=== PATIENT | male | born 1990 | race Caucasian/White ===

== ENCOUNTER 2016-09-05 13:31 | Emergency (ER) | payer BC ==
[2016-09-05 14:13] VITALS: BP 123/59
[2016-09-05] MEDS ORDERED: KETOROLAC TROMETHAMINE 60 MG/2 ML VIAL IM ONE ×2 (16:31→16:34)
--- NOTE | 2016-09-05 17:04 | ERNOTE ---
Back Pain ER HPI Date of Service: 09/05/16 Presenting Symptoms: injury/pain to back Time Seen by Provider: 09/05/16 16:16 Source: patient, RN notes reviewed Exam Limitations: no limitations Immunizations: IMMUNIZATION HX Immunizations Up to Date Yes History of Influenza Vaccine No Hx Pneumococcal Vaccination No Allergies/Adverse Reactions: Allergies No Known Allergies Allergy (Verified 07/08/16 14:11) Home Medications: HOME MEDICATIONS Geodon 80 mg PO DAILY 05/13/16 [Last Taken Unknown] Sertraline HCl [Zoloft] 100 mg PO DAILY 05/13/16 [Last Taken Unknown] Cyclobenzaprine HCl [Flexeril] 20 mg PO HS 09/05/16 [Last Taken Unknown] Cyclobenzaprine HCl [Flexeril] 25 mg PO TID PRN #30 tablet 09/05/16 [Last Taken Unknown] Ibuprofen [Motrin] 600 mg PO Q6H PRN #40 tab 09/05/16 [Last Taken Unknown] Narrative: Reinaldo is a 25 year old male who presents to the ER for left lower back pain that began approximately 2 weeks ago. He denies any injury or prior back problems, but reports having problems with his left hip in the past. He has not been taking anything for pain because he is under the impression that he cannot take Tylenol or ibuprofen with his Xanax and Geodon. His pain radiates down his left leg. Timing: Reports: constant Location of pain: Reports: lower back, radiating to lf thigh/leg Activities at Onset: Reports: none Recent Injury?: Reports: no Possible Precipitating Factor: Reports: none Modifying Factors - (Improves): Reports: upright position Modifying Factors - (Worsens): Reports: supine position Associated Symptoms: Denies: fever/chills, constipation/incontinence, nausea/ vomiting, problems urinating, difficulty walking, numbess/weakness in legs Prior Treament: Denies: similar symptoms before Review of Systems - Review of Systems Constitutional: Absent: recent illness, fever, chills EYE: Present: no symptoms reported ENT: Present: no symptoms reported Respiratory: Present: no symptoms reported Cardiology: Present: no symptoms reported Gastrointestinal/Abdominal: Present: See HPI Genitourinary: Absent: frequency, pain, dysuria, hematuria Musculoskeletal: Present: back pain. Absent: neck pain, joint pain, joint swelling Skin: Absent: lesions, lumps, change in color Neurological: Present: tingling. Absent: weakness, numbness Endocrine: Present: no symptoms reported Hematologic/Lymphatic: Present: no symptoms reported Psych: Present: no symptoms reported - Patient's Past Medical History Patient History - Medical: Anxiety, Bipolar, Depression, Other - Schizophrenia Patient History - Cardiac/Respiratory: No pertinent hx Patient History - Cancer: No Hx of Cancer Patient History - Surgical Procedures: Appendectomy - Social History Living Situations: home Smoking Status: Current every day smoker Have you smoked in the past 12 months: Yes Alcohol Use: sober Drug Use: none Physical Exam - Physical Exam General Appearance: Present: wd/wn, alert, no apparent distress Neck: Present: normal inspection, nontender, supple Respiratory: Present: no respiratory distress, normal breath sounds, no accessory muscle use, lungs clear Cardiovascular/Chest: Present: regular rate, rhythm, no murmur, normal peripheral pulses Gastrointestinal/Abdominal: Present: nontender, nondistended, soft Back Exam: Present: no CVA tenderness, no vertebral tenderness, other - paraspinal tenderness in left lumbar region, positive straight leg raise at 45 degrees Extremity Exam: Present: normal inspection, non-tender, no edema, normal range of motion Neurological Exam: Present: alert, oriented, normal mood/affect, no motor/ sensory deficits DTR: N=norm/NB=norm/brisk/A=abs/DD=dull/dimin/HC=hyperactive: Knee (R): Normal/ Brisk, Knee (L): Normal/Brisk Skin Exam: Present: normal color, warm/dry ED Progress - Vital Signs Patient's Vital Signs:: I have reviewed the patient's vital signs. Vital Signs: Vital Signs 09/05/16 14:09 Temperature 36.8 C Pulse Rate 90 Respiratory 16 Rate Blood Pressure 123/59 O2 Sat by Pulse 96 Oximetry - Progress/Reassessment Chief Complaint: Back Pain Progress:: Unchanged Departure Clinical Impression: Low back pain radiating down leg - Departure Disposition: Home Follow Up Needed Condition: Good Instructions: Back Pain, Adult, [id number], Form - Excuse from Work, School, or Physical Activity, Back Exercises Additional Instructions: Take ibuprofen with food Flexeril can cause drowsiness - you may not want to take it with your Vistaril Heat to sore area Establish with a primary care provider for follow up - you may need physical therapy or imaging done if pain continues Prescriptions: Cyclobenzaprine HCl [Flexeril] 25 mg PO TID PRN #30 tablet PRN Reason: Muscle Spasm Ibuprofen [Motrin] 600 mg PO Q6H PRN #40 tab PRN Reason: Pain
== END 2016-09-05 17:04 | disposition home or self-care (01) ==
LOC: ER 13:31
DX: M54.5 Low back pain (principal); M79.605 Pain in left leg; F17.210 Nicotine dependence, cigarettes, uncomplicated

== ENCOUNTER 2016-09-08 13:17 | Emergency (ER) | payer BC ==
[2016-09-08 13:56] VITALS: BP 131/75
[2016-09-08 14:23] LABS: Albumin * 4.3 gm/dl (3.4-5.0); Anion Gap 12.5 mmol/L (6.8-13.8); BUN/Creatinine Ratio 7.3 (9.0-21.6); Bilirubin, Total 0.5 mg/dL (0.0-1.1); Ca. Corrected For Albumin 8.8 mg/dL (8.4-10.2); Calcium * 9.4 mg/dL (7.9-10.9); Carbon Dioxide 30.4 mmol/L (24-32.6); Potassium 3.9 mmol/L (3.4-4.6); Total Protein 7.5 gm/dL (6.2-8.2)
[2016-09-08 14:27] LABS: Hemoglobin 14.9 gm/dL (13.5-18.0); Mean Cell Volume 82.2 fl (78-100); Mean Corpuscular Hemoglobin 28.5 pg (27-31); Mean Corpuscular Hgb Conc 34.7 g/dl (32-36); Mean Platelet Volume 9.5 fl (6.0-9.5); Neutrophil # 1.8 K/mm3 (1.3-6.0); Neutrophil % 51.9 % (42-75.0); Platelet Count 206 K/mm3 (150-450); Red Blood Count 5.23 M/mm3 (4.7-6.0); Red Cell Distribution Width 12.6 % (11.5-14.0); White Blood Count 3.5 K/mm3 (4.0-10.5)
[2016-09-08 14:35] LABS: Urine Bilirubin Negative (NEGATIVE); Urine Blood Negative /ul (NEGATIVE); Urine Ketone Negative (NEGATIVE); Urine Nitrite Negative (NEGATIVE); Urine Protein Negative (NEGATIVE); Urine Specific Gravity <=1.005 SP.GR. (1.005-1.030); Urine Urobilinogen Normal (NORMAL)
[2016-09-08 14:46] LABS: Urine Appearance Clear; Urine Bacteria None Seen; Urine Color Yellow; Urine RBC None Seen /hpf (0-5); Urine WBC None Seen /hpf (0-5)
[2016-09-08 14:51] LABS: Cocaine Ur Negative (NEGATIVE); Urine Barbiturate Negative (NEGATIVE); Urine Benzodiazepines Negative (NEGATIVE); Urine Opiates Negative (NEGATIVE); Urine PCP Negative (NEGATIVE); Urine THC Negative (NEGATIVE)
[2016-09-08] MEDS ORDERED: MAG HYDROX/ALUMINUM HYD/SIMETH 30 ML UDC PO ONE (14:59)
[2016-09-08] MEDS ORDERED: SUCRALFATE 1 G/10 ML UDC PO ONE (14:59)
[2016-09-08] MEDS ORDERED: LIDOCAINE HCL 20 ML UDC PO ONE (14:59)
--- NOTE | 2016-09-08 15:03 | ERNOTE ---
Abdominal HPI - Narrative Date of Service: 09/08/16 - General Chief Complaint: Abdominal Pain Time Seen by Provider: 09/08/16 14:49 Source: patient Exam Limitations: no limitations - Immun/Allergies/Home Medications Immunizatons: IMMUNIZATION HX Immunizations Up to Date Yes History of Influenza Vaccine No Hx Pneumococcal Vaccination No Allergies/Adverse Reactions: Allergies No Known Allergies Allergy (Verified 09/08/16 13:56) Home Medications: HOME MEDICATIONS Geodon 80 mg PO DAILY 05/13/16 [Last Taken Unknown] Sertraline HCl [Zoloft] 100 mg PO DAILY 05/13/16 [Last Taken Unknown] Ibuprofen [Motrin] 600 mg PO Q6H PRN #40 tab 09/05/16 [Last Taken Unknown] Ranitidine HCl [Zantac] 150 mg PO BID #60 tab 09/08/16 [Last Taken Unknown] hydrOXYzine PAMOATE [Vistaril] 25 mg PO TID 09/08/16 [Last Taken Unknown] hydrOXYzine PAMOATE [Vistaril] 50 mg PO HS 09/08/16 [Last Taken Unknown] - History of Present Illness Narrative: Pt. comes in with c/o LUQ pain that started at 1000 this morning and has not resolved throughout the day. Pt. denies any fever, NVD, but does state that the pain worsens with a deep breath and that he has occasional dizziness. Pt. denies any prehospital treatment or alleviating factors. Review of Systems - Review of Systems Constitutional: Present: no symptoms reported. Absent: recent illness, fever, chills, fatigue, malaise EYE: Present: no symptoms reported ENT: Present: other - throat pressure Respiratory: Present: no symptoms reported. Absent: shortness of breath, cough , wheezing Cardiology: Present: chest pain - mid sternal Gastrointestinal/Abdominal: Present: abdominal pain - L upper epigastric. Absent: nausea Genitourinary: Present: no symptoms reported Musculoskeletal: Present: no symptoms reported. Absent: back pain, joint pain Skin: Present: no symptoms reported Neurological: Present: no symptoms reported All Other Systems: All systems neg except as marked - Patient's Past Medical History Patient History - Medical: Anxiety, Bipolar, Depression Patient History - Cardiac/Respiratory: No pertinent hx Patient History - Cancer: No Hx of Cancer Patient History - Surgical Procedures: Appendectomy - Social History Living Situations: home Smoking Status: Current every day smoker Have you smoked in the past 12 months: Yes Alcohol Use: sober Drug Use: none Physical Exam - Physical Exam General Appearance: Present: wd/wn, alert, no apparent distress Eye Exam: Normal inspection: bilateral, PERRL: bilateral, EOMI: bilateral Ears, Nose, Throat: Present: hearing grossly normal, pharyngeal erythema. Absent: nasal congestion Neck: Present: normal inspection, nontender. Absent: lymphadenopathy (R), lymphadenopathy (L) Respiratory: Present: no respiratory distress, normal breath sounds, no accessory muscle use, chest nontender, lungs clear Cardiovascular/Chest: Present: regular rate, rhythm, no murmur, normal peripheral pulses Gastrointestinal/Abdominal: Present: normal bowel sounds, nontender, nondistended, soft, no organomegaly Back Exam: Present: normal inspection, normal range of motion, no CVA tenderness , no vertebral tenderness Extremity Exam: Present: normal inspection, non-tender, no edema, normal range of motion Neurological Exam: Present: alert, oriented, normal mood/affect, no motor/ sensory deficits Skin Exam: Present: normal color, warm/dry. Absent: pallor, skin rash ED Progress - Results and Orders Patient's Lab Results:: I have reviewed the patient's lab results. - Vital Signs Patient's Vital Signs:: I have reviewed the patient's vital signs. Vital Signs: Vital Signs 09/08/16 13:53 Temperature 36.6 C Pulse Rate 81 Respiratory 14 Rate Blood Pressure 131/75 O2 Sat by Pulse 96 Oximetry - X-Ray X-Ray #1 X-Ray: abdomen Interpretation: Reviewed by me X-ray Comments: Abdomen Flat W/ Upright *: No subdiaphragmatic free air. No abnormal dilation of large or small bowel. Potential hepatomegaly suggested, grossly stable. No definite signs of nephrolithiasis. Tiny round calcification projecting over the left pelvis, stable, most likely phleboliths. Osseous structures are intact. IMPRESSION: 1. Nonobstructive bowel gas pattern. 2. Potential hepatomegaly, grossly stable. 3. Additional comments as above. Electronically signed by Bryan Barlow M.D.. - Progress/Reassessment Chief Complaint: Abdominal Pain Progress:: Improved Departure - Departure Clinical Impression: Gastritis Qualifiers: Gastritis type: other gastritis Chronicity: acute Gastritis bleeding: without bleeding Qualified Code(s): K29.00 - Acute gastritis without bleeding Disposition: Home self-care Condition: Good Instructions: Gastritis, Adult, [id number] Additional Instructions: Please follow up with your primary provider in 2-3 days. Prescriptions: Ranitidine HCl [Zantac] 150 mg PO BID #60 tab
== END 2016-09-08 16:18 | disposition home or self-care (01) ==
LOC: ER 13:17
DX: K29.00 Acute gastritis without bleeding (principal); F17.210 Nicotine dependence, cigarettes, uncomplicated
CPT/HCPCS: 36415; 74020; 80053; 81001; 82150; 83690; 84484; 85025; 86308; 86665; 99284; G0479

== ENCOUNTER 2016-09-10 14:37 | Emergency (ER) | payer BC ==
[2016-09-10 14:43] VITALS: BP 118/71
--- NOTE | 2016-09-10 15:02 | ERNOTE ---
Medical Problem HPI - Narrative Date of Service: 09/10/16 - General Chief Complaint: Nausea/Vomiting Time Seen by Provider: 09/10/16 14:58 Source: patient - Immun/Allergies/Home Medications Immunizations: IMMUNIZATION HX Immunizations Up to Date Yes History of Influenza Vaccine No Hx Pneumococcal Vaccination No Allergies/Adverse Reactions: Allergies No Known Allergies Allergy (Verified 09/10/16 14:43) Home Medications: HOME MEDICATIONS Geodon 80 mg PO DAILY 05/13/16 [Last Taken Unknown] Sertraline HCl [Zoloft] 100 mg PO DAILY 05/13/16 [Last Taken Unknown] Ibuprofen [Motrin] 600 mg PO Q6H PRN #40 tab 09/05/16 [Last Taken Unknown] Ranitidine HCl [Zantac] 150 mg PO BID #60 tab 09/08/16 [Last Taken Unknown] hydrOXYzine PAMOATE [Vistaril] 25 mg PO TID 09/08/16 [Last Taken Unknown] hydrOXYzine PAMOATE [Vistaril] 50 mg PO HS 09/08/16 [Last Taken Unknown] Dicyclomine HCl [Bentyl] 10 - 20 mg PO TID #180 tab 09/10/16 [Last Taken Unknown ] Ondansetron [Zofran Odt] 4 mg PO Q6H PRN #20 tab 09/10/16 [Last Taken Unknown] - History of Present History Timing: constant Severity: moderate Review of Systems - Review of Systems Constitutional: Present: See HPI EYE: Present: no symptoms reported ENT: Present: no symptoms reported Respiratory: Present: no symptoms reported Cardiology: Present: no symptoms reported Gastrointestinal/Abdominal: Present: nausea, vomiting, abdominal pain Genitourinary: Present: no symptoms reported Musculoskeletal: Present: no symptoms reported Skin: Present: no symptoms reported Neurological: Present: no symptoms reported Endocrine: Present: no symptoms reported Hematologic/Lymphatic: Present: no symptoms reported Psych: Present: no symptoms reported - Patient's Past Medical History Patient History - Medical: Anxiety, Bipolar, Depression Patient History - Cardiac/Respiratory: No pertinent hx Patient History - Cancer: No Hx of Cancer Patient History - Surgical Procedures: Appendectomy - Social History Living Situations: home Smoking Status: Current every day smoker Have you smoked in the past 12 months: Yes Do you dip or chew tobacco: No Alcohol Use: sober Drug Use: none Physical Exam - Physical Exam General Appearance: Present: wd/wn, alert, moderate distress Eye Exam: Normal inspection: bilateral, PERRL: bilateral Ears, Nose, Throat: Present: normal ENT inspection, hearing grossly normal, normal pharynx Neck: Present: normal inspection, nontender Respiratory: Present: no respiratory distress, normal breath sounds, no accessory muscle use, chest nontender, lungs clear Cardiovascular/Chest: Present: regular rate, rhythm, no murmur, normal peripheral pulses Gastrointestinal/Abdominal: Present: normal bowel sounds, nondistended, soft, no organomegaly, tenderness - epigastric Rectal Exam: Present: deferred Back Exam: Present: normal inspection, normal range of motion Extremity Exam: Present: normal inspection, non-tender, no edema, normal range of motion Neurological Exam: Present: alert, oriented, normal mood/affect Skin Exam: Present: normal color, warm/dry Lymphatic Exam: Present: no adenopathy ED Progress - Vital Signs Patient's Vital Signs:: I have reviewed the patient's vital signs. Vital Signs: Vital Signs 09/10/16 14:40 Temperature 36.4 C L Pulse Rate 75 Respiratory 14 Rate Blood Pressure 118/71 O2 Sat by Pulse 100 Oximetry - Progress/Reassessment Chief Complaint: Nausea/Vomiting Progress:: Unchanged - Transfer of Care Expected Disposition: Discharge Departure - Departure Clinical Impression: Gastroenteritis Condition: Good Instructions: Viral Gastroenteritis, Adult, [id number] Prescriptions: Dicyclomine HCl [Bentyl] 10 - 20 mg PO TID #180 tab Ondansetron [Zofran Odt] 4 mg PO Q6H PRN #20 tab PRN Reason: Nausea And Vomiting
[2016-09-10] MEDS ORDERED: ONDANSETRON 4 MG TAB.RAPDIS PO ONE (15:08)
[2016-09-10] MEDS ORDERED: DICYCLOMINE HCL 10 MG/ML AMPUL IM ONE ×2 (15:08→15:20)
[2016-09-10] MEDS ORDERED: ONDANSETRON HCL/PF 2 MG/ML VIAL ONE (15:20)
[2016-09-10] MEDS ORDERED: ONDANSETRON 4 MG TAB.RAPDIS ONE (15:22)
== END 2016-09-10 15:25 | disposition home or self-care (01) ==
LOC: ER 14:37
DX: K52.9 Noninfective gastroenteritis and colitis, unspecified (principal); F17.210 Nicotine dependence, cigarettes, uncomplicated; F41.1 Generalized anxiety disorder; F32.9 Major depressive disorder, single episode, unspecified

== ENCOUNTER 2016-10-02 09:06 | Emergency (ER) | payer BC ==
[2016-10-02] MEDS ORDERED: NORMAL SALINE 1,000 ML IV ONE (09:34)
[2016-10-02] MEDS ORDERED: PANTOPRAZOLE SODIUM 40 MG in NORMAL SALINE 100 ML IV ONE (09:34)
[2016-10-02] MEDS ORDERED: ONDANSETRON HCL/PF 2 MG/ML VIAL IV ONE (09:34)
--- NOTE | 2016-10-02 09:42 | ERNOTE ---
Abdominal HPI - General Chief Complaint: Nausea/Vomiting Time Seen by Provider: 10/02/16 09:27 Source: patient - Immun/Allergies/Home Medications Immunizatons: IMMUNIZATION HX Immunizations Up to Date Yes History of Influenza Vaccine No Hx Pneumococcal Vaccination No Allergies/Adverse Reactions: Allergies No Known Allergies Allergy (Verified 09/10/16 14:43) Home Medications: HOME MEDICATIONS Geodon 80 mg PO DAILY 05/13/16 [Last Taken Unknown] Sertraline HCl [Zoloft] 100 mg PO DAILY 05/13/16 [Last Taken Unknown] hydrOXYzine PAMOATE [Vistaril] 25 mg PO TID 09/08/16 [Last Taken Unknown] hydrOXYzine PAMOATE [Vistaril] 50 mg PO HS 09/08/16 [Last Taken Unknown] Dicyclomine HCl [Bentyl] 10 - 20 mg PO TID #180 tab 09/10/16 [Last Taken Unknown ] Ondansetron [Zofran Odt] 4 mg PO Q6H PRN #20 tab 10/02/16 [Last Taken Unknown] Pantoprazole Sodium [Protonix] 40 mg PO DAILY #30 tablet. 10/02/16 [Last Taken Unknown] - History of Present Illness Narrative: Patient has had abdominal pain and vomiting on and off for a couple of month, has had three prior ER visits. His symptoms had resolved and then returned five days ago. He has upper abdominal pain, bloddy diarrhea 3-4 times a day, vomited 3-4 times a day,black at first, then bloody for the last two days Date (Duration): 09/28/16 Review of Systems - Review of Systems Constitutional: Absent: recent illness, fever Respiratory: Absent: shortness of breath Cardiology: Absent: chest pain Gastrointestinal/Abdominal: Present: See HPI Genitourinary: Present: no symptoms reported Skin: Absent: rash Neurological: Absent: headache - Patient's Past Medical History Patient History - Medical: Anxiety, Bipolar, Depression Patient History - Cardiac/Respiratory: No pertinent hx Patient History - Cancer: No Hx of Cancer Patient History - Surgical Procedures: Appendectomy Patient History - Other: None - Social History Living Situations: home Abuse History: No History of abuse Psych History: Hx of Anxiety, Hx of Depression, Hx of Bipolar Disorder, Current tx/ever been on anti-depressants or anti-anxiety meds Smoking Status: Current every day smoker Have you smoked in the past 12 months: Yes Alcohol Use: sober Drug Use: none - Immunizations Immunizations Up to Date: Yes Hx Pneumococcal Vaccination: No History of Influenza Vaccine: No Physical Exam - Physical Exam General Appearance: Present: wd/wn, no apparent distress Ears, Nose, Throat: Present: normal pharynx Respiratory: Present: no respiratory distress, normal breath sounds, lungs clear Cardiovascular/Chest: Present: regular rate, rhythm, no murmur Gastrointestinal/Abdominal: Present: nondistended, soft, tenderness - upper abdominal Neurological Exam: Present: alert, oriented, normal mood/affect Skin Exam: Present: normal color, warm/dry ED Progress - Results and Orders Patient's Lab Results:: I have reviewed the patient's lab results. - Vital Signs Patient's Vital Signs:: I have reviewed the patient's vital signs. Vital Signs: Vital Signs 10/02/16 09:13 Temperature 37.0 C Pulse Rate 86 Respiratory 16 Rate Blood Pressure 146/78 O2 Sat by Pulse 97 Oximetry - X-Ray X-Ray #1 X-Ray: abdomen - non specific gas pattern Interpretation: Reviewed by me - Progress/Reassessment Chief Complaint: Nausea/Vomiting Progress Note-Subjective: 10/02/16 10:30 pain and nausea unchanged, no vomiting while here discussed results 10/02/16 11:44 feeling better, pain improved, tolerated water discussed diagnosis of gastritis vs ulcers as not dropping H/H will treat as out patient Departure - Departure Clinical Impression: Gastritis Qualifiers: Gastritis type: unspecified gastritis Chronicity: acute Gastritis bleeding: with bleeding Qualified Code(s): K29.01 - Acute gastritis with bleeding Disposition: Home self-care Condition: Good Instructions: Gastritis, Adult, [id number], Form - Excuse from Work, School, or Physical Activity Additional Instructions: stop using ibuprofen call for a follow up appointment Referrals: Rachel Almonte DO [Associate] - Prescriptions: Ondansetron [Zofran Odt] 4 mg PO Q6H PRN #20 tab PRN Reason: Nausea And Vomiting Pantoprazole Sodium [Protonix] 40 mg PO DAILY #30 tablet.
[2016-10-02 09:53] LABS: Hematocrit 40.1 % (42.0-52.0); Hemoglobin 14.4 gm/dL (13.5-18.0); Mean Corpuscular Hemoglobin 28.7 pg (27-31); Mean Corpuscular Hgb Conc 35.9 g/dl (32-36); Mean Platelet Volume 9.9 fl (6.0-9.5); Neutrophil # 3.5 K/mm3 (1.3-6.0); Neutrophil % 65.4 % (42-75.0); Platelet Count 196 K/mm3 (150-450); Red Blood Count 5.01 M/mm3 (4.7-6.0); Red Cell Distribution Width 12.1 % (11.5-14.0); White Blood Count 5.4 K/mm3 (4.0-10.5)
[2016-10-02 10:06] LABS: Albumin * 4.3 gm/dl (3.4-5.0); BUN/Creatinine Ratio 12.6 (9.0-21.6); Bilirubin, Total 1.2 mg/dL (0.0-1.1); Ca. Corrected For Albumin 8.6 mg/dL (8.4-10.2); Calcium * 9.2 mg/dL (7.9-10.9); Carbon Dioxide 26.2 mmol/L (24-32.6); Potassium 3.2 mmol/L (3.4-4.6); Total Protein 7.6 gm/dL (6.2-8.2)
[2016-10-02] MEDS ORDERED: PANTOPRAZOLE SODIUM 40 MG/100 ML PIGGYBACK IV ONE (10:08)
[2016-10-02] MEDS ORDERED: ONDANSETRON HCL/PF 2 MG/ML VIAL ONE (10:08)
[2016-10-02] MEDS ORDERED: SUCRALFATE 1 G/10 ML UDC PO ONE (10:50)
[2016-10-02] MEDS ORDERED: LIDOCAINE HCL 20 ML UDC PO ONE (10:50)
[2016-10-02] MEDS ORDERED: MAG HYDROX/ALUMINUM HYD/SIMETH 30 ML UDC PO ONE (10:50)
[2016-10-02 12:04] VITALS: BP 129/60
== END 2016-10-02 12:08 | disposition home or self-care (01) ==
LOC: ER 09:06
DX: K29.01 Acute gastritis with bleeding (principal); F17.210 Nicotine dependence, cigarettes, uncomplicated

== ENCOUNTER 2016-11-02 18:29 | Emergency (ER) | payer BC ==
[2016-11-02 18:41] VITALS: BP 124/70
--- NOTE | 2016-11-02 20:37 | ERNOTE ---
Medical Problem HPI - General Chief Complaint: General Assessment Time Seen by Provider: 11/02/16 20:22 Source: patient Exam Limitations: no limitations - Immun/Allergies/Home Medications Immunizations: IMMUNIZATION HX Immunizations Up to Date Yes History of Influenza Vaccine No Hx Pneumococcal Vaccination No Allergies/Adverse Reactions: Allergies No Known Allergies Allergy (Verified 11/02/16 18:41) Home Medications: HOME MEDICATIONS Geodon 80 mg PO DAILY 05/13/16 [Last Taken Unknown] Sertraline HCl [Zoloft] 100 mg PO DAILY 05/13/16 [Last Taken Unknown] hydrOXYzine PAMOATE [Vistaril] 25 mg PO TID 09/08/16 [Last Taken Unknown] hydrOXYzine PAMOATE [Vistaril] 50 mg PO HS 09/08/16 [Last Taken Unknown] Dicyclomine HCl [Bentyl] 10 - 20 mg PO TID #180 tab 09/10/16 [Last Taken Unknown ] Ondansetron [Zofran Odt] 4 mg PO Q6H PRN #20 tab 10/02/16 [Last Taken Unknown] Pantoprazole Sodium [Protonix] 40 mg PO DAILY #30 tablet. 10/02/16 [Last Taken Unknown] - History of Present History Narrative: pt states he has been sleeping with a woman that someone else told him has an STI. Pt would like to be tested. Pt has no symptoms of STI. Timing: unsure Review of Systems - Review of Systems Constitutional: Absent: recent illness, fever, chills EYE: Present: no symptoms reported ENT: Present: no symptoms reported Respiratory: Present: no symptoms reported Cardiology: Present: no symptoms reported Gastrointestinal/Abdominal: Present: no symptoms reported Genitourinary: Absent: frequency, pain, discharge Musculoskeletal: Present: no symptoms reported Skin: Absent: rash, lesions Endocrine: Present: excessive sweating - night sweats that have been going on prior to this Hematologic/Lymphatic: Present: no symptoms reported - Patient's Past Medical History Patient History - Medical: Anxiety, Bipolar, Depression Patient History - Cardiac/Respiratory: No pertinent hx Patient History - Cancer: No Hx of Cancer Patient History - Surgical Procedures: Appendectomy Patient History - Other: None - Social History Living Situations: home Abuse History: No History of abuse Psych History: Hx of Anxiety, Hx of Depression, Hx of Bipolar Disorder, Current tx/ever been on anti-depressants or anti-anxiety meds Smoking Status: Current every day smoker Alcohol Use: sober Drug Use: none - Immunizations Immunizations Up to Date: Yes Hx Pneumococcal Vaccination: No History of Influenza Vaccine: No Physical Exam - Physical Exam General Appearance: Present: wd/wn, alert, no apparent distress Neck: Present: normal inspection Respiratory: Present: no respiratory distress Male Genitals Exam: Present: normal genitalia Back Exam: Present: normal inspection Extremity Exam: Present: normal inspection, normal range of motion Neurological Exam: Present: alert, oriented, normal mood/affect, no motor/ sensory deficits Skin Exam: Present: normal color, warm/dry Lymphatic Exam: Present: no adenopathy ED Progress - Results and Orders Patient's Lab Results:: I have reviewed the patient's lab results. Results and Orders: Laboratory Tests 11/02/16 20:30 Urine Color Colorless Urine Appearance Clear Urine pH 6.0 Ur Specific Lee 1.010 Urine Protein Negative Urine Glucose (UA) Negative Urine Ketones Negative Urine Blood Negative Urine Nitrate Negative Urine Bilirubin Negative Urine Urobilinogen Normal Ur Leukocyte Esterase Negative Urine RBC None seen Urine WBC None seen Ur Epithelial Cells None seen Urine Bacteria None seen Urine Culture Comments No culture indicated - Vital Signs Vital Signs: Vital Signs 11/02/16 18:39 Temperature 37.6 C H Pulse Rate 75 Respiratory 16 Rate Blood Pressure 124/70 O2 Sat by Pulse 99 Oximetry - Progress/Reassessment Chief Complaint: General Assessment Progress:: Unchanged Progress Note-Subjective: 11/02/16 20:44 discussed with patient that we are unable to do rapid GC/chlamydia at this time and that he would be much better served to have complete testing done with his primary care provider that could follow up on results when they come back. Pt agreed. Pt wanted info for PCP's in the area and for [facility] Information given to patient with discharge information Departure - Departure Clinical Impression: High risk sexual behavior Disposition: Home Follow Up Needed Condition: Good Instructions: Sexually Transmitted Disease, [id number] Additional Instructions: Follow up with a primary care provider or [facility] for further testing.
[2016-11-02 20:38] LABS: Urine Bilirubin Negative (NEGATIVE); Urine Blood Negative /ul (NEGATIVE); Urine Ketone Negative (NEGATIVE); Urine Nitrite Negative (NEGATIVE); Urine Protein Negative (NEGATIVE); Urine Urobilinogen Normal (NORMAL)
[2016-11-02 20:45] LABS: Urine Appearance Clear; Urine Color Colorless
[2016-11-02 20:46] LABS: Urine Bacteria None Seen; Urine RBC None Seen /hpf (0-5); Urine WBC None Seen /hpf (0-5)
--- OUTSIDE RECORDS SUMMARY | 2016-11-02 20:53 | XMS REPORT | Continuity of Care Document ---
:1990 Author Organization [facility] [place] [address] Care Team Providers Name Role Phone Bob Keys Primary Care Provider [phone] Source Comments This disclosure is being made pursuant to the [employer] program and maynot contain all information available regarding this patient.[facility] Active Allergies and Adverse Reactions Allergen Noted Date Severity Reactions Comments Aloe 11/18/2015 Low Rash Nuts 11/18/2015 Low Rash Current Medications Be aware that medications may not be up to date as of this document. Alwaysverify current medications with the patient. Prescription Sig. Disp. Refills Start Date End Date Status escitalopram (LEXAPRO) Take 20 mg by mouth 3 09/09/2015 Active 20 MG tablet daily. TAKE DIRECTED risperiDONE (RISPERDAL) Take 1 mg by mouth 2 0 10/02/2015 Active 1 MG tablet (two) times daily. diphenoxylate-atropine 0 11/04/2015 Active (LOMOTIL) 2.5-0.025 MG per tablet sucralfate (CARAFATE) 1 Take 1 g by mouth 4 0 11/08/2015 Active G tablet (four) times daily. ondansetron (ZOFRAN) 4 0 11/08/2015 Active MG tablet ibuprofen (ADVIL,MOTRIN) Take 200 mg by mouth Active 200 MG tablet every 6 (six) hours as needed for Pain. HYDROcodone-acetaminophe Take 1 tablet by Active n (NORCO) 7.5-325 MG per mouth every 6 (six) tablet hours as needed for Pain. Active Problems Problem Noted Date Schizophrenia (HCC) 11/18/2015 Most Recent Encounters Date Type Specialty Providers Description 08/13/2016 Data Import Social History Tobacco Use Types Packs/Day Years Used Date Current Every Day Smoker Smokeless Tobacco: Former User Tobacco Cessation:Ready to Quit: No; Counseling Given: Yes Comments: Alcohol Use Drinks/Week oz/Week Comments No 0 Standard drinks or equivalent 0.0 Last Filed Vital Signs Vital Sign Reading Time Taken Blood Pressure 120/72 11/26/2015 10:40 AM CDT Pulse 64 11/26/2015 10:40 AM CDT Temperature 36.6 C (97.8 F) 11/18/2015 9:38 AM CDT Respiratory Rate 20 11/26/2015 10:40 AM CDT Height 1.854 m (6' 1") 11/18/2015 9:38 AM CDT Weight 78.382 kg (172 lb 12.8 oz) 11/26/2015 10:40 AM CDT Body Mass Index 22.8 11/26/2015 10:40 AM CDT Oxygen Saturation 98% 02/26/2015 4:20 PM CDT Plan of Care Health Maintenance Due Date Last Done Comments HPV Vaccine (9-26YO) (1 of 3 - Male 3 Dose Series) 12/05/2003 Pneumococcal Medium Risk 19-64 yo (1 of 1 - PPSV23) 12/05/2011 Tetanus/Pertussis (1 - Tdap) 12/05/2011 Influenza Immunization (#1) 2016 Results from Last 3 Months Not on file
== END 2016-11-02 21:00 | disposition home or self-care (01) ==
LOC: ER 18:29
DX: Z03.89 Encounter for observation for other suspected diseases and conditions ruled out (principal); Z72.51 High risk heterosexual behavior

== ENCOUNTER 2016-11-26 18:39 | Emergency (ER) | payer BC ==
[2016-11-26 18:47] VITALS: BP 117/71
--- OUTSIDE RECORDS SUMMARY | 2016-11-26 19:10 | XMS REPORT | Continuity of Care Document ---
:1990 Author Organization [facility] [place] [address] Care Team Providers Name Role Phone Bob Keys Primary Care Provider [phone] Source Comments This disclosure is being made pursuant to the [employer] program and maynot contain all information available regarding this patient.[facility] Active Allergies and Adverse Reactions Allergen Noted [...] Recent Encounters Date Type Specialty Providers Description 11/26/2016 Data Import Social History Tobacco Use Types [...]
--- NOTE | 2016-11-26 19:23 | ERNOTE ---
Lower Extremity HPI - General Lower Extremities Pain: knee: left Time Seen by Provider: 11/26/16 18:45 Source: patient Exam Limitations: no limitations - Immun/Allergies/Home Medications Immunizations: IMMUNIZATION HX Immunizations Up to Date Yes History of Influenza Vaccine Yes Hx Pneumococcal Vaccination No Allergies/Adverse Reactions: Allergies Allergy/AdvReac Type Severity Reaction Status Date / Time hydrocodone Allergy Verified 11/26/16 18:47 ibuprofen Allergy Verified 11/26/16 18:47 Home Medications: HOME MEDICATIONS traMADol HCL [Ultram] 50 mg PO QID PRN #20 tablet 11/26/16 [Last Taken Unknown] - History of Present Illness Narrative: Patient missed a step while he was working in his yard several days ago and landed awkwardly on his left leg he now complains of pain in the left knee with difficult weightbearing. He describes the pain as moderately to severe. Occurred: other - 2 days ago Location of Incident: home Method of Injury: Reports: twisted Reason for Fall: Reports: other - missed a step Loss of Consciousness: Reports: no loss of consciousness Review of Systems - Review of Systems Constitutional: Present: See HPI EYE: Present: no symptoms reported ENT: Present: no symptoms reported Respiratory: Present: no symptoms reported Cardiology: Present: no symptoms reported Gastrointestinal/Abdominal: Present: no symptoms reported Genitourinary: Present: no symptoms reported Musculoskeletal: Present: See HPI, joint pain Skin: Present: no symptoms reported Neurological: Present: no symptoms reported Endocrine: Present: no symptoms reported Hematologic/Lymphatic: Present: no symptoms reported Psych: Present: no symptoms reported - Patient's Past Medical History Patient History - Medical: Anxiety, Bipolar, Depression Patient History - Cardiac/Respiratory: No pertinent hx Patient History - Cancer: No Hx of Cancer Patient History - Surgical Procedures: Appendectomy Patient History - Other: None - Social History Living Situations: home Abuse History: No History of abuse Psych History: Hx of Anxiety, Hx of Depression, Hx of Bipolar Disorder, Current tx/ever been on anti-depressants or anti-anxiety meds Smoking Status: Current every day smoker Patient requests Smoking Cessation Consult: No Initiate information on Smoking Cessation: No Alcohol Use: sober Drug Use: none - Immunizations Immunizations Up to Date: Yes Hx Pneumococcal Vaccination: No History of Influenza Vaccine: Yes Physical Exam - Physical Exam General Appearance: Present: wd/wn, alert, moderate distress Eye Exam: Normal inspection: bilateral, PERRL: bilateral Ears, Nose, Throat: Present: normal ENT inspection, H, normal pharynx Neck: Present: normal inspection, nontender Respiratory: Present: no respiratory distress, normal breath sounds, no accessory muscle use, chest nontender, lungs clear Cardiovascular/Chest: Present: regular rate, rhythm, no murmur, normal peripheral pulses Gastrointestinal/Abdominal: Present: normal bowel sounds, nontender, nondistended, soft, no organomegaly Rectal Exam: Present: deferred Back Exam: Present: normal inspection, normal range of motion Extremity Exam: Present: no edema, decreased range of motion - secondary to pain , other - Apley's compression test was equivocal, remainder to the knee ligaments appeared to be intact Neurological Exam: Present: alert, oriented, normal mood/affect Skin Exam: Present: normal color, warm/dry Lymphatic Exam: Present: no adenopathy ED Progress - Vital Signs Patient's Vital Signs:: I have reviewed the patient's vital signs. Vital Signs: Vital Signs 11/26/16 18:43 Temperature 36.4 C L Pulse Rate 67 Respiratory 18 Rate Blood Pressure 117/71 O2 Sat by Pulse 97 Oximetry - X-Ray X-Ray #1 X-Ray: knee Interpretation: Reviewed by me - Progress/Reassessment Chief Complaint: Lower Extremity Pain/ Injury Plan - Plan Plan: Patient will be placed in a knee immobilizer, given crutches and nonsteroidal anti-inflammatories, and will get a referral to the orthopedic office. Departure Clinical Impression: Left knee sprain Qualifiers: Encounter type: initial encounter Involved ligament of knee: unspecified ligament Qualified Code(s): S83.92XA - Sprain of unspecified site of left knee, initial encounter - Departure Disposition: Home self-care Condition: Good Instructions: Knee Sprain, [id number] Referrals: Antonio Zhao MD [Staff Physician] - Prescriptions: traMADol HCL [Ultram] 50 mg PO QID PRN #20 tablet PRN Reason: Moderate Pain
== END 2016-11-26 19:46 | disposition home or self-care (01) ==
LOC: ER 18:39
PROC: 2W3RX1Z Immobilization of Left Lower Leg using Splint (ICD-10-PCS; principal; 2016-11-26)
DX: S83.92XA Sprain of unspecified site of left knee, initial encounter (principal); X58.XXXA Exposure to other specified factors, initial encounter; Y93.89 Activity, other specified; Y92.007 Garden or yard of unspecified non-institutional (private) residence as the place of occurrence of the external cause

== ENCOUNTER 2016-12-29 07:44 | Emergency (ER) | payer BC ==
[2016-12-29] MEDS ORDERED: TRIAMCINOLONE ACETONIDE 40 MG/ML VIAL IM ONE (08:20)
--- NOTE | 2016-12-29 08:25 | ERNOTE ---
Time Seen by Provider: 12/29/16 08:10 Stated Complaint: COUGH/COLD Presenting Symptoms:: cough, runny nose Source: patient Exam Limitations: no limitations Immunizations: IMMUNIZATION HX Immunizations Up to Date Yes History of Influenza Vaccine Yes Hx Pneumococcal Vaccination No Allergies/Adverse Reactions: Allergies hydrocodone Allergy (Verified 12/29/16 07:58) ibuprofen Allergy (Verified 12/29/16 07:58) Home Medications: HOME MEDICATIONS traMADol HCL [Ultram] 50 mg PO QID PRN #20 tablet 11/26/16 [Last Taken Unknown] Albuterol Sulfate [Proair Hfa] 1 - 2 puff IH Q4H PRN #1 inhaler 12/29/16 [Last Taken Unknown] - History of Present Ilness Narrative: Pt has had cough, sneezing and runny nose for a few weeks. Pt states "this happens every November/December". States that oral allergy medications do not work for him Timing: getting worse Severity: moderate Frequency/Possible Cause: Reports: occasional episodes - every year, allergen exposure Modifying Factors - Improves: Reports: rest Modifying Factors - Worsens: Reports: activity Associated Symptoms: Reports: wheezing Review of Systems - Review of Systems Constitutional: Present: fever - possibly 3-4 days ago. EYE: Present: tearing - and itching ENT: Present: See HPI Respiratory: Present: shortness of breath - minimal Cardiology: Present: no symptoms reported Gastrointestinal/Abdominal: Present: no symptoms reported Genitourinary: Present: no symptoms reported Musculoskeletal: Present: no symptoms reported Skin: Absent: rash Neurological: Present: no symptoms reported Endocrine: Present: no symptoms reported Hematologic/Lymphatic: Present: no symptoms reported Psych: Present: no symptoms reported - Patient's Past Medical History Patient History - Medical: Anxiety, Bipolar, Depression Patient History - Cardiac/Respiratory: No pertinent hx, Asthma, Bronchitis, Other - seasonal allergies Patient History - Cancer: No Hx of Cancer Patient History - Surgical Procedures: Appendectomy Patient History - Other: None - Social History Living Situations: home Abuse History: No History of abuse Psych History: Hx of Anxiety, Hx of Depression, Hx of Bipolar Disorder, Current tx/ever been on anti-depressants or anti-anxiety meds Alcohol Use: sober Drug Use: none - Immunizations Immunizations Up to Date: Yes Hx Pneumococcal Vaccination: No History of Influenza Vaccine: Yes Physical Exam - Physical Exam General Appearance: Present: wd/wn, alert, no apparent distress Ears, Nose, Throat: Present: nasal congestion - pale mucosa, clear d/c. Absent : pharyngeal erythema Neck: Present: normal inspection, nontender Respiratory: Present: no respiratory distress, no accessory muscle use, wheezing - expiratory Cardiovascular/Chest: Present: regular rate, rhythm, no murmur Back Exam: Present: normal inspection, normal range of motion Extremity Exam: Present: normal inspection, normal range of motion Neurological Exam: Present: alert, oriented, normal mood/affect Skin Exam: Present: normal color, warm/dry Lymphatic Exam: Present: no adenopathy ED Progress - Vital Signs Vital Signs: Vital Signs 12/29/16 07:55 Temperature 35.7 C L Pulse Rate 69 Respiratory 12 Rate Blood Pressure 138/73 O2 Sat by Pulse 99 Oximetry - Progress/Reassessment Chief Complaint: Cough Departure - Departure Clinical Impression: Environmental allergies, Wheezing Disposition: Home Follow Up Needed Condition: Good Instructions: Bronchospasm, Adult, Allergic Rhinitis Additional Instructions: use inhaler as needed. Establish with a primary care doctor for further treatment Prescriptions: Albuterol Sulfate [Proair Hfa] 1 - 2 puff IH Q4H PRN #1 inhaler PRN Reason: Shortness Of Breath
[2016-12-29] MEDS ORDERED: TRIAMCINOLONE ACETONIDE 40 MG/ML VIAL ONE (08:32)
--- OUTSIDE RECORDS SUMMARY | 2016-12-29 08:32 | XMS REPORT | Continuity of Care Document ---
:1990 Author Organization [facility] [place] [address] Care Team Providers Name Role Phone Bob Keys Primary Care Provider [phone] Source Comments This disclosure is being made pursuant to the [employer] program and maynot contain all information available regarding this patient.[facility] Active Allergies and Adverse Reactions Allergen Noted [...]
[2016-12-29 08:38] VITALS: BP 119/82
== END 2016-12-29 08:47 | disposition home or self-care (01) ==
LOC: ER 07:44
DX: R06.2 Wheezing (principal); Z91.09 Other allergy status, other than to drugs and biological substances

== ENCOUNTER 2017-02-07 20:56 | Emergency (ER) | payer BC ==
[2017-02-07 21:02] VITALS: BP 124/75
--- NOTE | 2017-02-07 21:09 | ERNOTE ---
Upper Extremity HPI - Narrative Date of Service: 02/07/17 - General Extremities Pain Location: hand: left Source: patient Exam Limitations: no limitations - Immun/Allergies/Home Medications Immunizations: IMMUNIZATION HX Immunizations Up to Date Yes History of Influenza Vaccine Yes Hx Pneumococcal Vaccination No Allergies/Adverse Reactions: Allergies Allergy/AdvReac Type Severity Reaction Status Date / Time hydrocodone Allergy Verified 02/07/17 21:02 ibuprofen Allergy Verified 02/07/17 21:02 Home Medications: HOME MEDICATIONS NK [No Home Medication] 02/07/17 [Last Taken Unknown] - History of Present Illness Narrative: Was working when he hit his left hand on the dorsal radial aspect of the base of the first digit. Has pain over the area and with extension into the forearm. Some swelling but no redness or break of the skin. Location of Incident: home Review of Systems - Review of Systems Constitutional: Present: no symptoms reported ENT: Present: no symptoms reported Respiratory: Present: no symptoms reported Cardiology: Present: no symptoms reported Gastrointestinal/Abdominal: Present: no symptoms reported Genitourinary: Present: no symptoms reported Musculoskeletal: Present: See HPI - Patient's Past Medical History Patient History - Medical: Anxiety, Bipolar, Depression Patient History - Cardiac/Respiratory: No pertinent hx, Asthma, Bronchitis, Other Patient History - Cancer: No Hx of Cancer Patient History - Surgical Procedures: Appendectomy Patient History - Other: None - Social History Living Situations: home Abuse History: No History of abuse Psych History: Hx of Anxiety, Hx of Depression, Hx of Bipolar Disorder, Current tx/ever been on anti-depressants or anti-anxiety meds Smoking Status: Current every day smoker Alcohol Use: sober Drug Use: none - Immunizations Immunizations Up to Date: Yes Hx Pneumococcal Vaccination: No History of Influenza Vaccine: Yes Physical Exam - Physical Exam General Appearance: Present: wd/wn, alert, no apparent distress Extremity Exam: Present: normal inspection, normal range of motion, other - slight swelling at dorsal base of first digit left hand. FROM and normal neurovascular. ED Progress - Vital Signs Patient's Vital Signs:: I have reviewed the patient's vital signs. Vital Signs: Vital Signs 02/07/17 20:59 Temperature 37.1 C Pulse Rate 69 Respiratory 16 Rate Blood Pressure 124/75 O2 Sat by Pulse 98 Oximetry - X-Ray X-Ray #1 X-Ray: hand - No fx appreciated - Progress/Reassessment Chief Complaint: Hand Injury/Pain Plan - Plan Plan: Ice/elevation Use 1000 mg tylenol every 6 hours Follow up with PCP if not improved Departure Clinical Impression: Contusion of hand, left - Departure Disposition: Home self-care Condition: Good Instructions: Contusion, [id number] Additional Instructions: ice/elevation Use tylenol 1000 mg every 6 hours. Follow up with PCP if not improved
--- OUTSIDE RECORDS SUMMARY | 2017-02-07 21:24 | XMS REPORT | Continuity of Care Document ---
:1990 Author Organization [facility] [place] [address] Care Team Providers Name Role Phone Bob Keys Primary Care Provider [phone] Source Comments This disclosure is being made pursuant to the [employer] program and maynot contain all information available regarding this patient.[facility] Active Allergies and Adverse Reactions Allergen Noted [...] Problems Problem Noted Date Schizophrenia (HCC) 11/18/2015 Social History Tobacco Use Types Packs/Day Years [...] Health Maintenance Due Date Last Done Comments Pneumococcal Medium Risk 19-64 yo 12/05/2011 (1 of 1 - PPSV23) Tetanus/Pertussis (1 - Tdap) 12/05/2011 Influenza Immunization (#1) 2016 HPV Vaccine (9-26YO) Aged Out No longer eligible based on patient's age to complete this topic Results from Last 3 Months Not on file
== END 2017-02-07 21:20 | disposition home or self-care (01) ==
LOC: ER 20:56
DX: S60.222A Contusion of left hand, initial encounter (principal); F17.200 Nicotine dependence, unspecified, uncomplicated; W22.8XXA Striking against or struck by other objects, initial encounter; Y93.H9 Activity, other involving exterior property and land maintenance, building and construction; Y92.009 Unspecified place in unspecified non-institutional (private) residence as the place of occurrence of the external cause

== ENCOUNTER 2017-03-02 14:54 | Emergency (ER) | payer BC ==
[2017-03-02 15:08] VITALS: BP 117/74
--- OUTSIDE RECORDS SUMMARY | 2017-03-02 15:21 | XMS REPORT | Continuity of Care Document ---
:1990 Author Organization [facility] [place] [address] Care Team Providers Name Role Phone Bob Keys Primary Care Provider [phone] Source Comments This disclosure is being made pursuant to the [employer] program and maynot contain all information available regarding this patient.[facility] Active Allergies and Adverse Reactions Allergen Noted [...] from Last 3 Months Not on file Insurance Payer Benefit Plan / Group Subscriber ID Type Phone Address [facility] PPO [id number] PPO [phone] [address] [place] [address] Home: [address] [phone] [place] [id number] [place] Personal/Family Self 1990 Home: [address] [phone] [place] [id number]
--- NOTE | 2017-03-02 15:25 | ERNOTE ---
[facility] Date of Service: 03/02/17 Presenting Symptoms: dental pain Time Seen by Provider: 03/02/17 15:10 Source: patient, RN notes reviewed Exam Limitations: no limitations - Immun/Allergies/Home Medications Immunizations: IMMUNIZATION HX Immunizations Up to Date Yes History of Influenza Vaccine Yes Hx Pneumococcal Vaccination No Allergies/Adverse Reactions: Allergies Allergy/AdvReac Type Severity Reaction Status Date / Time hydrocodone Allergy Verified 03/02/17 15:08 ibuprofen Allergy Verified 03/02/17 15:08 Home Medications: HOME MEDICATIONS Penicillin V Potassium [Pen-Vee K] 500 mg PO Q8H #30 tab 03/02/17 [Last Taken Unknown] - History of Present Illness Narrative: 26 y/o male ambulatory to the ED for dental pain that has been present for several days but has gotten worse today. He reports pain in his right upper jaw and swelling into the maxillary region and right nostril. He states he had a fever of 103 this morning. He is currently afebrile despite not having taking anything for fever today. He reports having a dentist appointment on the . ENT Location: Present: dental Prearrival Treatment: Present: no prearrival treatment Prior Treament: Reports: similar symptoms before. Denies: currently on antibiotics Review of Systems - Review of Systems Constitutional: Present: fever. Absent: recent illness, chills EYE: Present: no symptoms reported ENT: Present: nose congestion. Absent: ear pain, nasal drainage, sore throat Respiratory: Absent: shortness of breath, cough Cardiology: Present: no symptoms reported Gastrointestinal/Abdominal: Absent: nausea, vomiting Genitourinary: Present: no symptoms reported Musculoskeletal: Absent: muscle pain, neck pain Skin: Absent: rash, lesions Neurological: Absent: headache, dizziness/light-headedness Endocrine: Present: no symptoms reported Hematologic/Lymphatic: Present: no symptoms reported - Patient's Past Medical History Patient History - Medical: Anxiety, Bipolar, Depression Patient History - Cardiac/Respiratory: Asthma, Bronchitis, Other Patient History - Cancer: No Hx of Cancer Patient History - Surgical Procedures: Appendectomy Patient History - Other: None - Social History Living Situations: spouse Abuse History: No History of abuse Psych History: Hx of Anxiety, Hx of Depression, Hx of Bipolar Disorder, Hx of Schizophrenia, Current tx/ever been on anti-depressants or anti-anxiety meds Smoking Status: Current every day smoker Have you smoked in the past 12 months: Yes Alcohol Use: sober Drug Use: none - Immunizations Immunizations Up to Date: Yes Hx Pneumococcal Vaccination: No History of Influenza Vaccine: Yes Physical Exam - Physical Exam General Appearance: Present: alert, no apparent distress, other - Thin, disheveled appearance Eye Exam: Normal inspection: bilateral Ears, Nose, Throat: Present: normal pharynx, other - poor dentition with widespread decay, no focal abscess, no facial swelling. Absent: abnormal TM (R) , abnormal TM (L), dry mucous membranes Neck: Present: normal inspection, nontender, supple. Absent: lymphadenopathy (R ), lymphadenopathy (L) Respiratory: Present: no respiratory distress, normal breath sounds, no accessory muscle use, lungs clear Cardiovascular/Chest: Present: regular rate, rhythm, no murmur Neurological Exam: Present: alert, oriented, normal mood/affect, no motor/ sensory deficits Skin Exam: Present: normal color, warm/dry ED Progress - Vital Signs Patient's Vital Signs:: I have reviewed the patient's vital signs. Vital Signs: Vital Signs 03/02/17 15:06 Temperature 37 C Pulse Rate 84 Respiratory 14 Rate Blood Pressure 117/74 O2 Sat by Pulse 98 Oximetry - Progress/Reassessment Chief Complaint: Dental Problem Progress:: Unchanged Departure Clinical Impression: Dental caries - Departure Disposition: Home Follow Up Needed Condition: Stable Instructions: Dental Caries, [id number] Additional Instructions: See your dentist as scheduled Prescriptions: Penicillin V Potassium [Pen-Vee K] 500 mg PO Q8H #30 tab
== END 2017-03-02 15:21 | disposition home or self-care (01) ==
LOC: ER 14:54
DX: K02.9 Dental caries, unspecified (principal); F17.200 Nicotine dependence, unspecified, uncomplicated

== ENCOUNTER 2017-03-10 22:42 | Emergency (ER) | payer BC ==
--- NOTE | 2017-03-10 23:02 | ERNOTE ---
Integumentary HPI - General Presenting Symptoms: insect bite Time Seen by Provider: 03/10/17 22:56 Source: patient Exam Limitations: no limitations - Immun/Allergies/Home Medications Immunizations: IMMUNIZATION HX Immunizations Up to Date Yes History of Influenza Vaccine Yes Hx Pneumococcal Vaccination No Allergies/Adverse Reactions: Allergies Allergy/AdvReac Type Severity Reaction Status Date / Time hydrocodone Allergy Verified 03/10/17 22:51 Home Medications: HOME MEDICATIONS Amoxicillin/Potassium Clav [Augmentin 875-125 Tablet] 1 each PO BID 03/10/17 [ Last Taken Unknown] Ibuprofen 800 mg PO BID 03/10/17 [Last Taken 03/10/17 15:00] traMADol HCL [Ultram] 50 mg PO BID 03/10/17 [Last Taken 03/10/17 21:00] - Pain Pain Score: 5 Review of Systems - Review of Systems Constitutional: Present: fatigue EYE: Present: no symptoms reported ENT: Present: no symptoms reported Respiratory: Present: shortness of breath Gastrointestinal/Abdominal: Present: nausea Musculoskeletal: Present: neck pain, joint pain Skin: Present: See HPI Neurological: Present: headache Endocrine: Present: no symptoms reported Hematologic/Lymphatic: Present: no symptoms reported Psych: Present: no symptoms reported - Patient's Past Medical History Patient History - Medical: Anxiety, Bipolar, Depression Patient History - Cardiac/Respiratory: Asthma, Bronchitis, Other Patient History - Cancer: No Hx of Cancer Patient History - Surgical Procedures: Appendectomy Patient History - Other: None - Social History Living Situations: home Abuse History: No History of abuse Psych History: Hx of Anxiety, Hx of Depression, Hx of Bipolar Disorder, Hx of Schizophrenia, Current tx/ever been on anti-depressants or anti-anxiety meds Smoking Status: Current every day smoker Alcohol Use: sober Drug Use: none - Immunizations Immunizations Up to Date: Yes Hx Pneumococcal Vaccination: No History of Influenza Vaccine: Yes Physical Exam - Physical Exam General Appearance: Present: wd/wn, alert, no apparent distress Head Exam: Present: normal inspection, no evidence of injury Ears, Nose, Throat: Present: normal ENT inspection Neck: Present: normal inspection, nontender Respiratory: Present: no respiratory distress, normal breath sounds, lungs clear Gastrointestinal/Abdominal: Present: normal bowel sounds, nontender, nondistended, soft Back Exam: Present: normal inspection, normal range of motion, no vertebral tenderness Extremity Exam: Present: normal range of motion, no edema. Absent: joint redness, joint swelling Neurological Exam: Present: alert, oriented, normal mood/affect, no motor/ sensory deficits Skin Exam: Present: other - 5 cm x 4 cm indurated area with 7mm central ulcer Lymphatic Exam: Present: no adenopathy ED Progress - Results and Orders Patient's Lab Results:: I have reviewed the patient's lab results. Results and Orders: Laboratory Tests 03/10/17 03/10/17 03/10/17 23:53 23:53 23:53 WBC 5.5 Hgb 13.7 Hct 39.1 L Plt Count 280 PT 10.5 INR (Anticoag Therapy) 1.01 PTT ([place]) 26.6 Sodium 140 Potassium 3.9 D Chloride 102 Carbon Dioxide 31.0 Anion Gap 10.9 BUN 10 Creatinine 0.96 Est GFR (Non-Af Amer) 102 Random Glucose 108 Calcium 9.2 Total Bilirubin 0.6 AST 15 ALT 34 Alkaline Phosphatase 56 Total Protein 7.8 Albumin 3.8 Urine Color Urine Appearance Urine pH Ur Specific [place] Urine Protein Urine Glucose (UA) Urine Ketones Urine Blood Urine Nitrate Urine Bilirubin Urine Urobilinogen Ur Leukocyte Esterase Urine RBC Urine WBC Ur Epithelial Cells Urine Bacteria Urine Culture Comments 03/10/17 23:54 WBC Hgb Hct Plt Count PT INR (Anticoag Therapy) PTT ([place]) Sodium Potassium Chloride Carbon Dioxide Anion Gap BUN Creatinine Est GFR (Non-Af Amer) Random Glucose Calcium Total Bilirubin AST ALT Alkaline Phosphatase Total Protein Albumin Urine Color Pale yellow Urine Appearance Clear Urine pH 6.5 Ur Specific [place] <=1.005 Urine Protein Negative Urine Glucose (UA) Negative Urine Ketones Negative Urine Blood Negative Urine Nitrate Negative Urine Bilirubin Negative Urine Urobilinogen Normal Ur Leukocyte Esterase Negative Urine RBC None seen Urine WBC None seen Ur Epithelial Cells None seen Urine Bacteria Trace Urine Culture Comments No culture indicated - Vital Signs Patient's Vital Signs:: I have reviewed the patient's vital signs. Vital Signs: Vital Signs 03/10/17 22:46 Temperature 36.6 C Pulse Rate 62 Respiratory 16 Rate Blood Pressure 118/81 O2 Sat by Pulse 98 Oximetry - Progress/Reassessment Chief Complaint: Insect Bite Departure Clinical Impression: Brown recluse spider bite Qualifiers: Encounter type: initial encounter Injury intent: accidental or unintentional Qualified Code(s): T63.331A - Toxic effect of venom of brown recluse spider, accidental (unintentional), initial encounter - Departure Disposition: Home self-care Condition: Good Instructions: Brown Recluse Spider Bite, [id number] Additional Instructions: Ice to sore area 10-15 minutes at a time 3-4 times a day. you may use ibuprofen or aleve as needed for discomfort. see your regular doctor for follow up on the bite.
--- OUTSIDE RECORDS SUMMARY | 2017-03-10 23:42 | XMS REPORT | Continuity of Care Document ---
:1990 Author Organization [facility] [place] [address] Care Team Providers Name Role Phone Bob Keys Primary Care Provider [phone] Source Comments This disclosure is being made pursuant to the [employer] program and maynot contain all information available regarding this patient.[employer] Active Allergies and Adverse Reactions Allergen Noted [...] 12/05/2011 Influenza Immunization (#1) 2016 HPV Vaccine ([id number],M: 9-22) Aged Out No longer eligible based on patient's age to complete this topic Results from Last 3 Months Not on file Insurance Payer Benefit Plan / Group Subscriber ID Type Phone Address [facility] [id number] PPO [phone] [address] [place] [address] [address] [place] [address] [address] [phone] [place] [id number] [address] Personal/Family Self 1990 Home: [address] [phone] [place] [id number]
[2017-03-10 23:59] LABS: Hematocrit 39.1 % (42.0-52.0); Hemoglobin 13.7 gm/dL (13.5-18.0); Red Blood Count 4.81 M/mm3 (4.7-6.0); White Blood Count 5.5 K/mm3 (4.0-10.5)
[2017-03-11] LABS: Mean Cell Volume 81.3 fl (78-100); Mean Corpuscular Hemoglobin 28.5 pg (27-31); Mean Platelet Volume 9.1 fl (6.0-9.5); Neutrophil # 2.8 K/mm3 (1.3-6.0); Platelet Count 280 K/mm3 (150-450); Red Cell Distribution Width 12.2 % (11.5-14.0)
[2017-03-11] MEDS ORDERED: KETOROLAC TROMETHAMINE 60 MG/2 ML VIAL IM ONE ×2 (00:02→00:04)
[2017-03-11 00:15] LABS: Urine Bilirubin Negative (NEGATIVE); Urine Blood Negative /ul (NEGATIVE); Urine Ketone Negative (NEGATIVE); Urine Nitrite Negative (NEGATIVE); Urine Protein Negative (NEGATIVE); Urine Specific Gravity <=1.005 SP.GR. (1.005-1.030); Urine Urobilinogen Normal (NORMAL); Urine pH 6.5 pH (5.0-7.0)
[2017-03-11 00:19] LABS: Albumin * 3.8 gm/dl (3.4-5.0); Anion Gap 10.9 mmol/L (6.8-13.8); BUN/Creatinine Ratio 10.4 (9.0-21.6); Bilirubin, Total 0.6 mg/dL (0.0-1.1); Calcium * 9.2 mg/dL (7.9-10.9); Potassium 3.9 mmol/L (3.4-4.6); Total Protein 7.8 gm/dL (6.2-8.2)
[2017-03-11 00:22] LABS: Prothrombin Time (Patient) 10.5 Seconds (9.4-11.4)
[2017-03-11 00:23] LABS: INR 1.01 INR (0.90-1.10); Partial Thrombolplastin Time 26.6 Seconds (24-32)
[2017-03-11 00:23] LABS: Urine Appearance Clear; Urine Color Pale Yellow; Urine WBC None Seen /hpf (0-5)
[2017-03-11 00:24] LABS: Urine Bacteria TRACE; Urine RBC None Seen /hpf (0-5)
[2017-03-11 01:23] VITALS: BP 121/81
== END 2017-03-11 01:19 | disposition home or self-care (01) ==
LOC: ER 22:42
DX: T63.331A Toxic effect of venom of brown recluse spider, accidental (unintentional), initial encounter (principal)

== ENCOUNTER 2017-04-25 23:57 | Emergency (ER) | payer BC ==
--- NOTE | 2017-04-26 01:10 | ERNOTE ---
Upper Extremity HPI - General Time Seen by Provider: 04/26/17 01:04 Source: patient Exam Limitations: no limitations - Immun/Allergies/Home Medications Immunizations: IMMUNIZATION HX Immunizations Up to Date Yes History of Influenza Vaccine Yes Hx Pneumococcal Vaccination No Allergies/Adverse Reactions: Allergies Allergy/AdvReac Type Severity Reaction Status Date / Time hydrocodone Allergy Verified 03/10/17 22:51 Home Medications: HOME MEDICATIONS Amoxicillin/Potassium Clav [Augmentin 875-125 Tablet] 1 each PO BID 03/10/17 [ Last Taken Unknown] Ibuprofen 800 mg PO BID 03/10/17 [Last Taken 03/10/17 15:00] traMADol HCL [Ultram] 50 mg PO BID 03/10/17 [Last Taken 03/10/17 21:00] Ibuprofen [Motrin] 800 mg PO TID PRN #15 tablet 04/26/17 [Last Taken Unknown] - History of Present Illness Narrative: This is a 26-year-old 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 He states for the past 24 hours he's had left-sided upper neck and shoulder and back pain. Pain from time to time. He has not taken any medication for this pain today. Review of Systems - Review of Systems Constitutional: Present: no symptoms reported EYE: Present: no symptoms reported ENT: Present: no symptoms reported Respiratory: Present: no symptoms reported Cardiology: Present: no symptoms reported Gastrointestinal/Abdominal: Present: no symptoms reported Genitourinary: Present: no symptoms reported Musculoskeletal: Present: See HPI - Patient's Past Medical History Patient History - Medical: Anxiety, Bipolar, Depression Patient History - Cardiac/Respiratory: Asthma, Bronchitis, Other Patient History - Cancer: No Hx of Cancer Patient History - Surgical Procedures: Appendectomy Patient History - Other: None - Social History Living Situations: home Abuse History: No History of abuse Psych History: Hx of Anxiety, Hx of Depression, Hx of Bipolar Disorder, Hx of Schizophrenia, Current tx/ever been on anti-depressants or anti-anxiety meds Smoking Status: Current every day smoker Patient requests Smoking Cessation Consult: No Initiate information on Smoking Cessation: No Alcohol Use: sober Drug Use: none - Immunizations Immunizations Up to Date: Yes Hx Pneumococcal Vaccination: No History of Influenza Vaccine: Yes Physical Exam - Physical Exam General Appearance: Present: wd/wn, alert, no apparent distress Respiratory: Present: no respiratory distress, normal breath sounds, no accessory muscle use, chest nontender, lungs clear Cardiovascular/Chest: Present: regular rate, rhythm, no murmur, normal peripheral pulses Extremity Exam: Present: normal inspection - patient has a normal appearing left shoulder he has full range of motion however upon palpation of the left upper trapezius and the area just medial to the left scapula is slightly tender there are no lesions there. I do feel a mild amount of muscle spasm. Neurological Exam: Present: alert, oriented, normal mood/affect, no motor/ sensory deficits ED Progress - Vital Signs Patient's Vital Signs:: I have reviewed the patient's vital signs. Vital Signs: Vital Signs 04/26/17 00:34 Temperature 36.8 C Pulse Rate 69 Respiratory 18 Rate Blood Pressure 114/60 O2 Sat by Pulse 98 Oximetry - Progress/Reassessment Chief Complaint: Shoulder Injury/Pain Plan - Plan Plan: Patient will be placed in a shoulder immobilizer and given an anti-inflammatory and sent home. Departure Clinical Impression: Back pain Qualifiers: Back pain location: back pain in other location Chronicity: acute Qualified Code(s): M54.9 - Dorsalgia, unspecified - Departure Disposition: Home self-care Condition: Good Instructions: Muscle Strain, [id number] Prescriptions: Ibuprofen [Motrin] 800 mg PO TID PRN #15 tablet PRN Reason: Pain
[2017-04-26] MEDS ORDERED: KETOROLAC TROMETHAMINE 60 MG/2 ML VIAL IM ONE ×2 (01:20→01:34)
[2017-04-26 02:59] VITALS: BP 116/78
== END 2017-04-26 01:41 | disposition home or self-care (01) ==
LOC: ER 23:57
DX: M54.9 Dorsalgia, unspecified (principal); F17.200 Nicotine dependence, unspecified, uncomplicated

== ENCOUNTER 2017-09-25 17:24 | Emergency (ER) | payer BC ==
[2017-09-25 18:05] VITALS: BP 118/75
--- NOTE | 2017-09-25 18:13 | ERNOTE ---
Upper Extremity HPI - Narrative Date of Service: 09/25/17 - General Extremities Pain Location: elbow: left Time Seen by Provider: 09/25/17 17:46 Source: patient Exam Limitations: no limitations - Immun/Allergies/Home Medications Immunizations: IMMUNIZATION HX Immunizations Up to Date Yes History of Influenza Vaccine Yes Hx Pneumococcal Vaccination No Allergies/Adverse Reactions: Allergies Allergy/AdvReac Type Severity Reaction Status Date / Time hydrocodone Allergy Verified 09/25/17 18:05 Home Medications: HOME MEDICATIONS Ibuprofen [Motrin] 800 mg PO TID PRN #15 tablet 04/26/17 [Last Taken Unknown] - History of Present Illness Narrative: patient states his left elbow locked up on him yesterday when he was holding something for an extended time. Patient states that when he extends his arm out away he feels pain in his left tricep. Patient has not taken anything for pain today. Review of Systems - Review of Systems Constitutional: Present: no symptoms reported EYE: Present: no symptoms reported ENT: Present: no symptoms reported Respiratory: Present: no symptoms reported Cardiology: Present: no symptoms reported Gastrointestinal/Abdominal: Present: no symptoms reported Genitourinary: Present: no symptoms reported Musculoskeletal: Present: See HPI, joint pain Skin: Present: no symptoms reported Neurological: Present: no symptoms reported Endocrine: Present: no symptoms reported Hematologic/Lymphatic: Present: no symptoms reported Psych: Present: no symptoms reported All Other Systems: All systems neg except as marked - Patient's Past Medical History Patient History - Medical: Anxiety, Bipolar, Depression, Other Patient History - Cardiac/Respiratory: Asthma, Bronchitis, Other Patient History - Cancer: No Hx of Cancer Patient History - Surgical Procedures: Appendectomy Patient History - Other: None - Social History Living Situations: alone Abuse History: No History of abuse Psych History: Hx of Anxiety, Hx of Depression, Hx of Bipolar Disorder, Hx of Schizophrenia, Current tx/ever been on anti-depressants or anti-anxiety meds Smoking Status: Current every day smoker Have you smoked in the past 12 months: Yes Do you dip or chew tobacco: No Alcohol Use: none Drug Use: none - Immunizations Immunizations Up to Date: Yes Hx Pneumococcal Vaccination: No History of Influenza Vaccine: Yes Physical Exam - Physical Exam Narrative: ROM to left elbow is WNL General Appearance: Present: wd/wn, alert, no apparent distress Head Exam: Present: normal inspection, no evidence of injury Ears, Nose, Throat: Present: normal ENT inspection, normal pharynx Neck: Present: normal inspection, nontender Respiratory: Present: no respiratory distress, normal breath sounds, no accessory muscle use, chest nontender, lungs clear Cardiovascular/Chest: Present: regular rate, rhythm, no murmur, normal peripheral pulses Peripheral Pulses: N=norm/S=strong/W=weak/B=bound/A=absent: Radial (R): Normal, Radial (L): Normal Gastrointestinal/Abdominal: Present: normal bowel sounds, nontender, nondistended, soft, no organomegaly Back Exam: Present: normal inspection, normal range of motion, no CVA tenderness , no vertebral tenderness Extremity Exam: Present: normal inspection, non-tender, normal range of motion, no edema Neurological Exam: Present: alert, oriented, normal mood/affect, no motor/ sensory deficits ED Progress - Vital Signs Patient's Vital Signs:: I have reviewed the patient's vital signs. Vital Signs: Vital Signs 09/25/17 09/25/17 17:29 18:03 Temperature 36.5 C 36.5 C Pulse Rate 64 63 Respiratory 14 18 Rate Blood Pressure 127/74 118/75 O2 Sat by Pulse 99 100 Oximetry - X-Ray X-Ray #1 X-Ray: elbow Interpretation: Reviewed by me X-ray Comments: no acute injury - Progress/Reassessment Chief Complaint: Upper Extremity Injury/Problem Progress:: Improved Plan - Plan Plan: patient to follow up with Ortho if needed. Departure Clinical Impression: Strain of elbow Qualifiers: Encounter type: initial encounter Laterality: left Qualified Code(s): S56.912A - Strain of unspecified muscles, fascia and tendons at forearm level, left arm, initial encounter - Departure Disposition: Home self-care Condition: Good Instructions: Muscle Strain, [id number] Additional Instructions: The patient may take [id number] pain medication as needed. Follow-up with orthopedist if needed. Return to the emergency room if left elbow will become swollen red warm and decreased range of motion or increased pain. Referrals: Bob Keys DO [Primary Care Provider] -
== END 2017-09-25 18:31 | disposition home or self-care (01) ==
LOC: ER 17:24
DX: S56.912A Strain of unspecified muscles, fascia and tendons at forearm level, left arm, initial encounter (principal); F17.200 Nicotine dependence, unspecified, uncomplicated